=== PATIENT | female | born 1950 | race Two or more races ===

== ENCOUNTER 2017-08-01 11:25 | Emergency (ER) | payer MEDICARE ==
[~2017-08-01] VITALS: Ht 149.9 cm; Wt 63.0 kg
[2017-08-01 12:08] VITALS: BP 186/101
[2017-08-01] MEDS ORDERED: KETOROLAC TROMETH 60MG/2ML VIAL IM ONE (12:15)
[2017-08-01] MEDS ORDERED: METHOCARBAMOL 500 MG TAB PO ONE (12:15)
[2017-08-01] MEDS ORDERED: cloNIDine HCL 0.1 MG TAB PO ONE (12:15)
== END 2017-08-01 14:36 | disposition home or self-care (01) ==
LOC: ER 11:25
DX: M47.896 Other spondylosis, lumbar region (principal); M16.12 Unilateral primary osteoarthritis, left hip
CPT/HCPCS: 72110; 73502; 96372; 99284; J1885